=== PATIENT | male | born 1990 | race Caucasian/White ===

== ENCOUNTER 2023-09-06 14:50 | Emergency (ER) | payer MEDICAID, SELFPAY ==
[2023-09-06 14:57] VITALS: BP 144/77; PULSE 111; O2SAT 100
[2023-09-06 15:03] VITALS: BP 141/97; PULSE 96; RESP 22; TEMP 36.9; O2SAT 100; BMI 20.1
[2023-09-06 15:07] VITALS: BP 141/97; PULSE 100; RESP 24; TEMP 36.9; O2SAT 100
--- NOTE | 2023-09-06 15:18 | PC.NURSE ---
patient arrived via EMS s/p overdose per EMS patient was at [facility] bus stop and found unresponsive, received a total of 12mg of narcan given by EMS and PD. patient initially did not want to come to ED however is now agreeable to care, requesting to speak to addiction counselors. states he has overdosed before, he is a daily substance user, usually uses crack and cocaine, and roughly one bag of heroin a day, thinks toady someone may have given him fentanyl. patient alert and oriented, placed on cardiac montior, vital signs stable at this time. patient agreeable to staying to be evaluated at this time
[2023-09-06 16:53] LABS: MANUAL DIFF FLAG NO
[2023-09-06 16:55] LABS: Basophils Absolute Auto 0.1 X10*3/uL (0.0-0.2); Basophils Percent Auto 0.9 % (0-2); Eosinophils Absolute Auto 0.1 X10*3/uL (0.0-0.4); Eosinophils Percent Auto 0.9 % (0-4); Hematocrit 31.8 % (42.0-52.0); Hemoglobin 10.6 g/dl (14.0-18.0); Imm Gran Abs Auto 0.01 X10*3/uL (0.00-0.03); Imm Gran Pct Auto 0.2 % (0.0-0.4); Lymphocytes Absolute Auto 1.1 X10*3/uL (1.2-4.9); Lymphocytes Percent Auto 19.6 % (20-40); Mean Corpuscular HGB Conc 33.3 g/dl (31.0-36.0); Mean Corpuscular Hemoglobin 27.5 pg (27.0-33.0); Mean Corpuscular Volume 82.6 fL (80.0-98.0); Monocytes Absolute Auto 0.6 X10*3/uL (0.1-1.2); Neutrophils Percent Auto 68.4 % (45-73); Platelet Count 254 X10*3/uL (160-400); Red Blood Count 3.85 X10*6/uL (4.60-5.80); Red Cell Distribution Width 14.8 % (11.0-16.0); White Blood Count 5.8 X10*3/uL (4.8-10.8)
--- NOTE | 2023-09-06 16:56 | PC.NURSE ---
community living coach at bedside at this time
--- NOTE | 2023-09-06 16:57 | ED.OVERDOSE ---
HPI - Overdose General Chief Complaint: Overdose Stated Complaint: OD,NARCAN PER EMS Time Seen by Provider: 09/06/23 15:59 Source: patient Mode of arrival: EMS Limitations: no limitations History of Present Illness HPI Narrative: Patient is a 33-year-old male who presents emergency department via EMS. He was reportedly at home with some friends when he accidentally overdosed on fentanyl. He admits to smoking has a bag of fentanyl in addition he admits that he has been smoking crack cocaine. He states that he has consumed alcohol but not in a few days. He required 12 mg of Narcan on scene and was alert and oriented afterwards. He expressed initial interest in speaking with addiction medicine counselor and he confirms that he is interested in detox. He denies ever having been on methadone or Suboxone in the past were going to detox. He has no physical complaints. I did ask the patient whether he was having any suicidal ideations, which he adamantly denies instances this was purely accidental. He denies any homicidal ideations. Related Data Allergies Allergy/AdvReac Type Severity Reaction Status Date / Time doxycycline Allergy Shortness Verified 09/06/23 15:06 of Breath Review of Systems Review of Systems: Yes all other systems are reviewed and are negative PMFSH Past Medical History Attestation statement: The following information was validated with the patient. Source: old records reviewed Social History Social History Alcohol intake: current Alcohol intake frequency: a few times a week Smoked in Last 30 Days: Yes Use of substances other than those prescribed or required for medical reasons: Yes Substance Use Type: Crack/Cocaine, Heroin, IV Drugs and Opiates Substance Use Frequency: Daily Any prior treatment program specific to substance use: No Advance Directives: No Advance Directives Information Provided: No Do you have a plan to hurt others: No Plan Physical Exam Vital Signs: Vital Signs: Last Vital Signs Temp 97.8 F 09/06/23 20:28 Pulse 55 09/06/23 20:28 Resp 16 09/06/23 20:28 BP 114/64 09/06/23 20:28 Pulse Ox 99 09/06/23 20:28 O2 Del Method Room Air 09/06/23 20:28 BMI result Body Mass Index 20.1 Appearance: Alert.?Oriented to person, place and time. No acute distress.?Normal affect. Eyes: Pupils equal, round and reactive to light.? ENT: Pharynx normal.?? Neck: Normal inspection.? Neck supple.?? CVS: Heart sounds normal. Normal heart rate and rhythm.? Pulses normal.?? Respiratory: No respiratory distress.? Lung sounds clear to auscultation bilaterally?? Abdomen: Soft and non-tender. Normoactive bowel sounds. ? Skin: Skin warm and dry.? Normal skin color.? ? Extremities: No lower extremity edema.? Neuro: Moves all extremities spontaneously. Sensation intact bilaterally. CN II-XII intact. No focal neuro deficits. Ambulates with normal steady gait. Medical Decision Making Medical Decision Making [facility] Narrative: Patient is a 33-year-old male with past medical history of polysubstance use disorder presenting to emergency department via EMS for evaluation after a reportedly accidental overdose. He offers no physical complaints and his physical examination is benign. At the time of my evaluation he remains drowsy but is easily arousable to minimal verbal stimuli. Denies suicidal ideations and expresses interest in speaking with addiction medicine services. Plan to obtain basic labs for medical clearance and will consult addiction met. Differential Diagnosis Differential Diagnoses: The differential diagnosis associated with the presentation includes (See narrative above) Admission/Observation Consideration of admission/observation: Escalation of care including admission/observation considered Consult Healthcare Provider Management of the patient was discussed with: Behavioral Health Provider Addiction medicine met with patient unable to be placed to detox bed tonight. James advised to have him at their facility 4 07:00 as a walk-in, patient agreeable with plan of care, his harm reduction counselor at at [facility] in [place] has been involved in care as well Lab Data [facility] Lab Attestation statement: I reviewed the patient's lab results. CBC is without leukocytosis, noted to have normocytic anemia that does not meet transfusion criteria, no thrombocytopenia. 09/06/23 16:50 09/06/23 16:50 Labs: Lab Results 09/06/23 09/06/23 Range/Units 16:50 20:29 WBC 5.8 (4.8-10.8) X10*3/uL RBC 3.85 L (4.60-5.80) X10*6/uL Hgb 10.6 L (14.0-18.0) g/dl Hct 31.8 L (42.0-52.0) % MCV 82.6 (80.0-98.0) fL MCH 27.5 (27.0-33.0) pg MCHC 33.3 (31.0-36.0) g/dl RDW 14.8 (11.0-16.0) % Plt Count 254 (160-400) X10*3/uL MPV 8.0 L (9.4-12.4) fL Immature Gran % (Auto) 0.2 (0.0-0.4) % Neut % (Auto) 68.4 (45-73) % Lymph % (Auto) 19.6 L (20-40) % [place] % (Auto) 10.0 (2-11) % Eos % (Auto) 0.9 (0-4) % Baso % (Auto) 0.9 (0-2) % Lymph # (Auto) 1.1 L (1.2-4.9) X10*3/uL [place] # (Auto) 0.6 (0.1-1.2) X10*3/uL Eos # (Auto) 0.1 (0.0-0.4) X10*3/uL Baso # (Auto) 0.1 (0.0-0.2) X10*3/uL Abs Immat Gran (auto) 0.01 (0.00-0.03) X10*3/uL Absolute Neuts (auto) 4.0 (2.0-8.3) x10*3/uL Absolute Nucleated RBC 0.000 (0.0-0.012) X10*3/uL Nucleated RBC % (auto) 0.0 (0.0-0.2) /100WBC Sodium 137 (135-145) mmol/L Potassium 3.7 (3.3-5.1) mmol/L Chloride 104 (96-108) mmol/L Carbon Dioxide 26 (22-29) mmol/L Anion Gap 11 L (12-20) BUN 12 (9-16) mg/dL Creatinine 0.71 (0.5-1.4) mg/dL Estim Creat Clear Calc 130.4 Estimated GFR > 60 Random Glucose 83 (60-115) mg/dL Calcium 8.7 (8.4-10.2) mg/dL Total Bilirubin 0.2 (0.0-1.0) mg/dL AST 27 (5-37) U/L ALT 17 (0-40) U/L Alkaline Phosphatase 86 (39-117) U/L Total Protein 7.5 (6.5-8.0) g/dL Albumin 3.8 (3.5-5.0) g/dL Urine Opiates Screen Not Detected (Not Detect) Ur Buprenorphine Scrn Not Detected (Not Detect) ng/mL Ur Oxycodone Screen Not Detected (Not Detect) ng/mL Urine Methadone Screen Not Detected (Not Detect) ng/mL Urine Fentanyl Screen POSITIVE H (Not Detect) Ur Barbiturates Screen Not Detected (Not Detect) Ur Phencyclidine Scrn Not Detected (Not Detect) Ur Amphetamines Screen Not Detected (Not Detect) U Benzodiazepines Scrn Not Detected (Not Detect) Urine Cocaine Screen POSITIVE H (Not Detect) U Marijuana (THC) Screen Not Detected (Not Detect) Ethyl Alcohol < 10 mg/dL Independent Historian Clinical information obtained from an independent historian. History obtained from or confirmed by: EMS Discharge Plan Discharge Clinical Impression: Drug overdose, Polysubstance use disorder Patient Disposition: Home, Self-Care Instructions: Adult Overdose (ED) Print Language: Liberian
[2023-09-06 17:12] LABS: Alanine Aminotransferase 17 U/L (0-40); Albumin Level 3.8 g/dL (3.5-5.0); Alkaline Phosphatase 86 U/L (39-117); Anion Gap 11 (12-20); Aspartate Amino Transferase 27 U/L (5-37); Bilirubin Total 0.2 mg/dL (0.0-1.0); Blood Urea Nitrogen 12 mg/dL (9-16); Calcium 8.7 mg/dL (8.4-10.2); Carbon Dioxide 26 mmol/L (22-29); Chloride 104 mmol/L (96-108); Creatinine Clr Calc Pharmacy 130.4; Estimated Glomerular Filt Rate > 60; Ethanol < 10 mg/dL; Glucose Random 83 mg/dL (60-115); Potassium 3.7 mmol/L (3.3-5.1); Sodium 137 mmol/L (135-145); Total Protein 7.5 g/dL (6.5-8.0)
--- NOTE | 2023-09-06 17:51 | MHC.RECOVSUP ---
? Reason for consult Recovery Support o Current location: ED 12 o Identified substance use concern: Opiates - Overdose - Seeking ATS (detox) - Support ? Intervention: o ATS bed search started 5:15 /completed 545 o Community resources provided o Harm reduction discussion ? Plan: o Bed search in progress to ATS ? Additional information: Met with patient and Talked about support. He wanted / needed to talk with his harm reduction counselor at [facility] in [place]. He was able to speak with him and he also advised Patient to go to detox. I called 3 ATS no beds at the moment. Jacob stated to have him there by 7am as a walk in. I spoke with person in charge and was able to give a update. His harm Reduction Counselor stated that he going to pass by and try to help him out.
[2023-09-06 20:28] VITALS: BP 114/64; PULSE 55; RESP 16; TEMP 36.6; O2SAT 99
[2023-09-06 20:47] LABS: Amphetamine Screen Urine Not Detected (Not Detect); Barbiturates, Urine Not Detected (Not Detect); Benzodiazepines Screen Urine Not Detected (Not Detect); Buprenorphine Scr Not Detected (Not Detect); Cannabinoid Screen Urine Not Detected (Not Detect); Cocaine Screen Urine POSITIVE (Not Detect); Fentanyl, urine POSITIVE (Not Detect); Methadone Screen, Urine Not Detected (Not Detect); Opiate Screen Urine Not Detected (Not Detect); Oxycodone Screen Urine Not Detected (Not Detect); Phencyclidine Screen Urine Not Detected (Not Detect)
[2023-09-06 23:02] VITALS: BP 108/67; PULSE 66; RESP 16; TEMP 36.6; O2SAT 98
[2023-09-07 06:00] VITALS: BP 107/67; PULSE 52; RESP 14; O2SAT 99
--- NOTE | 2023-09-07 06:47 | PC.NURSE ---
take out narcan given
[2023-09-07 06:50] VITALS: BP 0/0; PULSE 0; RESP 0; TEMP -17.7; TEMP 0; O2SAT 0
== END 2023-09-07 06:51 | disposition home or self-care (01) ==
PROVIDERS: Nurse Practitioner Family; Emergency Provider Internal Medicine
DX: T50.901A Poisoning by unspecified drugs, medicaments and biological substances, accidental (unintentional), initial encounter (principal); Y92.9 Unspecified place or not applicable; F19.90 Other psychoactive substance use, unspecified, uncomplicated
CPT/HCPCS: 36415; 80053; 80307; 85025; 99284; 99285